=== PATIENT | male | born 1945 | race Caucasian/White ===

== ENCOUNTER 2020-01-20 06:10 | Outpatient (REF) | payer MEDICARE, SELFPAY | END 2020-01-20 06:11 | disposition home or self-care (01) | LOC: HO.LAB 06:10 | PROVIDERS: Visit Provider Internal Medicine | DX: Z20.828 Contact with and (suspected) exposure to other viral communicable diseases (principal) | CPT/HCPCS: C9803; U0003 ==

== ENCOUNTER 2020-02-03 06:08 | Outpatient (REF) | payer MEDICARE, SELFPAY | END 2020-02-03 06:09 | disposition home or self-care (01) | LOC: HO.LAB 06:08 | PROVIDERS: PCP Internal Medicine; Visit Provider Internal Medicine | DX: Z20.828 Contact with and (suspected) exposure to other viral communicable diseases (principal) | CPT/HCPCS: C9803; U0003 ==

== ENCOUNTER 2020-03-06 08:25 | Outpatient (REF) | payer MEDICARE, SELFPAY | END 2020-03-06 08:26 | disposition home or self-care (01) | LOC: HO.LAB 08:25 | PROVIDERS: PCP Internal Medicine; Visit Provider Internal Medicine | DX: Z20.822 Contact with and (suspected) exposure to COVID-19 (principal) | CPT/HCPCS: 36415; C9803; U0003 ==